=== PATIENT | male | born 1995 | race African-American/Black ===

== ENCOUNTER 2019-03-26 10:14 | Emergency (ER) | payer SELFPAY | END 2019-03-26 10:38 | disposition home or self-care (01) | LOC: BURERS 10:14 | DX: S61.211D Laceration without foreign body of left index finger without damage to nail, subsequent encounter (principal); I10 Essential (primary) hypertension; F17.210 Nicotine dependence, cigarettes, uncomplicated; Z79.899 Other long term (current) drug therapy; X58.XXXD Exposure to other specified factors, subsequent encounter ==

== ENCOUNTER 2019-05-18 16:55 | Emergency (ER) | payer SELFPAY ==
[~2019-05-18 16:55] MED LIST: Iopamidol 370 76% 100 ML VIAL ONE
[2019-05-18] MEDS ORDERED: cefTRIAXone\\ROCEPHIN 2 GM VIAL ONE (17:28)
[2019-05-18] MEDS ORDERED: Ketorolac Tromethamine 30 MG/ML VIAL ONE (17:28)
[2019-05-18] MEDS ORDERED: Dexamethasone 4 mg/ml Vial ONE (17:28)
[2019-05-18] MEDS ORDERED: Sodium Chloride 0.9% 100 ML ONE (17:29)
[2019-05-18 17:56] LABS: Hemoglobin 13.8 g/dL (14.0-18.0); Mean Corpuscular Volume 87.3 fL (78.0-98.0); Red Blood Cell (RBC) Count 5.04 mill/uL (4.70-6.10); White Blood Cell (WBC) Count 9.6 thou/uL (4.8-10.8)
[2019-05-18 17:57] LABS: Manual Diff?? YES; Mean Corpuscular HGB CONC 31.4 g/dL (32.0-36.0); Mean Corpuscular Hemoglobin 27.4 pg (27.0-31.0); Mean Platelet Volume 8.1 fL (7.4-10.4); Platelet Count 181 thou/uL (130-400)
[2019-05-18 18:05] LABS: ALT (SGPT) 45 U/L (8-55); AST (SGOT) 16 U/L (5-34); Albumin 4.2 g/dL (3.5-5.0); Alkaline Phosphatase 73 U/L (40-110); Anion Gap 18 mmol/L (10-20); BUN (Urea Nitrogen) 13 mg/dL (8.9-20.6); Bilirubin, Total 1.1 mg/dL (0.2-1.2); Calc. Creatinine Clearance 0 mL/min (70-130); Calcium 9.8 mg/dL (7.8-10.44); Carbon Dioxide 25 mmol/L (22-29); Chloride 103 mmol/L (98-107); Estimated GFR-MDRD Greater than 90; Globulin 3.6 g/dL (2.4-3.5); Glucose 82 mg/dL (70-105); Potassium 3.5 mmol/L (3.5-5.1); Protein, Total 7.8 g/dL (6.0-8.3); Sodium 142 mmol/L (136-145)
[2019-05-18 18:10] LABS: MDiff Complete? YES
[2019-05-18 18:11] LABS: Band 1 % (5-11); Blast 0 % (0-0); Eosinophils 0 % (0-10); Lymphocytes 22 % (21-51); Metamyelocyte 0 % (0-0); Monocytes 6 % (0-10); Myelocyte 0 % (0-0); Neutrophil 71 % (42-75); Nucleated RBC 0 % (0); Promyelocytes 0 % (0-0); Reactive Lymphocytes 0 % (0-10)
[2019-05-18] MEDS ORDERED: Benzocaine 20% Spray 60 ML CAN ONE (18:42)
--- NOTE | 2019-05-18 19:02 | CT ---
CTA OF THE NECK SOFT TISSUES WITH CONTRAST: Date: 05-18-19 FINDINGS: A large fluid filled collection is seen in the left peritonsillar area consistent with an abscess. It measures about 2.5 x 1.4 cm. It has a slightly thickened rim and is pushing the airway towards the r ight. The uvula seems enlarged and inflamed as well. The subglottic areas were unremarkable. An abund ance of enlarged cervical nodes are seen, particularly on the left side. The patient's adenoidal tiss ues seem mildly thickened as well. IMPRESSION: 2.5 cm left peritonsillar abscess. Findings called to Dr. Coughlin at 1801 on 05-18-19. POS: HOME
== END 2019-05-18 19:40 | disposition home or self-care (01) ==
LOC: BURERS 16:55
DX: J36 Peritonsillar abscess (principal); I10 Essential (primary) hypertension; F17.210 Nicotine dependence, cigarettes, uncomplicated; Z79.899 Other long term (current) drug therapy
CPT/HCPCS: 70491; 80053; 85025; 87081; 87430; 96365; 96375; J0696; J1100; J1885; J3490; Q9967

== ENCOUNTER 2020-05-29 17:54 | Emergency (ER) | payer SELFPAY ==
[2020-05-29] MEDS ORDERED: HYDROcodone/Acetaminophen 10/325 mg Tablet ONE (18:31)
[2020-05-29] MEDS ORDERED: AMOXicillin 250 MG CAP ONE (18:31)
== END 2020-05-29 18:29 | disposition home or self-care (01) ==
LOC: BURERS 17:54
DX: K08.89 Other specified disorders of teeth and supporting structures (principal); I10 Essential (primary) hypertension; F17.210 Nicotine dependence, cigarettes, uncomplicated
CPT/HCPCS: 99283